=== PATIENT | female | born 1980 | race Caucasian/White ===

== ENCOUNTER → 2019-01-24 | Outpatient (CLI) | payer OTHER ==
--- NOTE | 2019-01-25 22:33 | MR ---
EXAMINATION TYPE: MR brain wo con DATE OF EXAM: 01/24/2019 COMPARISON: 03/11/2018, [facility] HISTORY: Seizures CONTRAST: Performed utilizing 0 mL intravenous Gadavist gadolinium contrast. TECHNIQUE: Multiplanar, multiecho imaging on a 3.0 Ese magnet is performed through the brain. Stud y is performed within 24 hours of arrival to the hospital. The craniovertebral junction is normal. The pituitary is normal. Diffusion-weighted imaging is performed. No abnormal hyperintensity is present to suggest an acute i ntracranial infarct or acute ischemic change. Signal through the brain is normal. Temporal lobes are symmetrical. Ventricles and sulci are appropriate for the patient age. Small retention cyst or mucosal thickening is within the right maxillary sinus. IMPRESSIONS: 1. No acute intracranial process MRI brain. 2. No significant interval change
== END | disposition home or self-care (01) ==
LOC: RADMRIMAIN 13:06
PROVIDERS: ATTEND Family Medicine
DX: G40.909 Epilepsy, unspecified, not intractable, without status epilepticus (principal)
CPT/HCPCS: 70551